=== PATIENT | female | born 1990 | race Caucasian/White ===

== ENCOUNTER → 2021-06-23 | Outpatient (CLI) | payer MEDICAID ==
--- NOTE | 2021-06-23 14:11 | Diagnostic Imaging Report ---
INDICATION: Palpable lump left breast. Patient has had multiple left breast biopsies. COMPARISON: Correlation is made with the prior mammogram from 12/12/2018. TECHNIQUE: 2D and 3D bilateral diagnostic mammography was performed with CAD. FINDINGS: Both breasts are heterogeneously dense, limiting the sensitivity of mammography. There are multiple clips in the left breast from prior surgery. A BB marker was placed at the area of palpable abnormality in the outer left breast. No underlying mass is identified. No malignant-appearing microcalcifications are seen. The axillae are unremarkable. IMPRESSION: No mammographic features suspicious for malignancy are identified. Even so, directed sonographic interrogation of the area of palpable abnormality in the left breast is recommended and will be performed today. ACR BI-RADS Category 0: Incomplete. (Needs additional imaging evaluation). Result letter will be mailed to the patient. Note: At least 10% of breast cancer is not imaged by mammography. Dictated by: Dictated on workstation # [id number]
--- NOTE | 2021-06-23 16:52 | Diagnostic Imaging Report ---
INDICATION: Status post excisional biopsy, left breast. The patient has a new palpable abnormality in the left breast. CORRELATION is made with diagnostic mammogram performed earlier same day. Sonographic interrogation of the area of palpable abnormality was performed. This correlates to the 3:00 location approximately 8 cm from the nipple. There are several small benign-appearing hypoechoic nodules at this location, all measuring 1 cm or less. While these could represent small intraparenchymal lymph nodes these are fairly well-circumscribed and have benign features. This is located deep to the patient's surgical scar and it is conceivable this represents an area of parenchymal scarring. In addition, the upper outer left breast at the 2:00 location was evaluated due to some parenchymal asymmetry on the diagnostic mammogram. There is an area of ovoid heterogeneity at the 2:00 location, 3 cm from the nipple, measuring 2.6 x 0.9 x 3.1 cm. There is no internal vascularity. No posterior acoustic shadowing is seen. This likely accounts for the area of increased density noted mammographically. IMPRESSION: BI-RADS Category 4 Benign appearance to the 3:00 location of the left breast at the area of palpable abnormality. A follow-up of this area with ultrasound in 6 months could be performed to show continued stability. 2. Ovoid mixed echogenicity lesion at the 2:00 location of the left breast, 3 cm from the nipple, likely accounting for an area of increased density noted mammographically. While this has benign features as well, this was not definitely present on prior mammogram and tissue sampling would be recommended. This would be amenable to ultrasound-guided core biopsy. Dictated by: Dictated on workstation # [id number]
== END ==
LOC: RAD 13:45
PROVIDERS: ATTEND Obstetrics & Gynecology
DX: N63.20 Unspecified lump in the left breast, unspecified quadrant (principal)
CPT/HCPCS: 76642; 77066; G0279; 77062

== ENCOUNTER 2021-08-01 05:30 | Outpatient (CLI) | payer MEDICAID ==
[~2021-08-01] VITALS: Ht 167.7 cm; Wt 90.8 kg
[2021-08-01] MEDS ORDERED: VENL150C PO (10:31)
[2021-08-01] MEDS ORDERED: OMEP20CA18 PO (10:31)
[2021-08-01] MEDS ORDERED: QUET25TA PO (10:31)
[2021-08-01] MEDS ORDERED: VENL37.52 PO (10:31)
[2021-08-01] MEDS ORDERED: LAMO100T69 PO (10:31)
[2021-08-01] MEDS ORDERED: NORG1TAB14 PO (10:31)
[2021-08-01] MEDS ORDERED: TRAZ-227 PO (10:31)
[2021-08-01] MEDS ORDERED: CHOL4PAC16 PO (10:31)
== END 2021-08-01 10:47 | disposition home or self-care (01) ==
LOC: PREOP 05:30
PROVIDERS: ATTEND Obstetrics & Gynecology
DX: Z01.818 Encounter for other preprocedural examination (principal)

== ENCOUNTER 2021-08-08 06:39 | Day surgery (SDC) | payer MEDICAID ==
[~2021-08-08] VITALS: Ht 167.7 cm; Wt 90.8 kg
[2021-08-08] VITALS (11 sets, daily range): BP systolic 101–125; BP diastolic 53–78
[~2021-08-08 06:39] MED LIST: CHOL4PAC16 PO; LAMO100T69 PO; NORG1TAB14 PO; OMEP20CA18 PO; QUET25TA PO; TRAZ-227 PO; VENL150C PO; VENL37.52 PO
--- OUTSIDE RECORDS SUMMARY | 2021-08-08 06:42 | XMS REPORT | Clinical Summary ---
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 If you d o not see the information that you expected, contact Release of Information in [facility] Information Management department at [phone] for further assistan ce in locating additional records.[facility] Allergies Not on File Medications Not on file Active Problems Not on file Social History Date Tobacco Use Types Packs/Day Years Used Never Assessed Sex Assigned at Date Recorded Not on file Last Filed Vital Signs Not on file Plan of Treatment Health Maintenance Due Date Last Done Comments HIV SCREENING 2006 DTAP/TDAP VACCINES (1 - 2009 Tdap) HEPATITIS C SCREENING 2009 PHYSICAL (COMPREHENSIVE) 2009 EXAM CERVICAL CANCER SCREENING 2012 INFLUENZA VACCINE 08/22/2021 Results Not on filefrom Last 3 Months Advance Directives Patient Resin Remover Explanation Type Date Recorded Advance Directive/DPOA
[2021-08-08] MEDS ORDERED: LIDOCAINE/EPI 1%-1:100,000 (XYLOCAINE) 20ML ONE (06:57)
[2021-08-08] MEDS ORDERED: ceFAZolin INJECTION 1,000 MG in WATER (STERILE) FOR INJECTION 10 ML IV ONE (07:00)
[2021-08-08] MEDS: LACTATED RINGERS 1,000 ML IV PRN ×2 (07:11→08:25)
[2021-08-08] MEDS ORDERED: MIDAZOLAM 2 MG/2 ML (VERSED) VIAL ONE ×2 (07:15→07:25)
[2021-08-08 07:19] LABS: BASOPHILS % (AUTO) 1 % (0-10); EOSINOPHILS # (AUTO) 0.3 10^3/uL (0.0-0.3); EOSINOPHILS % (AUTO) 5 % (0-10); HEMATOCRIT 36 % (35-52); HEMOGLOBIN 12.1 g/dL (11.5-16.0); LYMPHOCYTES # (AUTO) 1.6 10^3/uL (1.0-4.0); LYMPHOCYTES % (AUTO) 29 % (12-44); MEAN CORPUSCULAR HEMOGLOBIN 31 pg (25-34); MEAN CORPUSCULAR HGB CONC 34 g/dL (32-36); MEAN CORPUSCULAR VOLUME 91 fL (80-99); MEAN PLATELET VOLUME 9.8 fL (9.0-12.2); MONOCYTES # (AUTO) 0.4 10^3/uL (0.0-1.0); MONOCYTES % (AUTO) 7 % (0-12); NEUTROPHILS # (AUTO) 3.1 10^3/uL (1.8-7.8); NEUTROPHILS % (AUTO) 58 % (42-75); PLATELET COUNT 272 10^3/uL (130-400); WHITE BLOOD COUNT 5.4 10^3/uL (4.3-11.0)
[2021-08-08] MEDS ORDERED: LIDOCAINE PF 2% 5 ML (XYLOCAINE) VIAL ONE ×2 (07:25→07:26)
[2021-08-08] MEDS ORDERED: fentaNYL INJ 100 MCG/2 ML AMP ONE ×4 (07:25→11:41)
[2021-08-08] MEDS ORDERED: proPOfol 200 MG/20 ML (DIPRIVAN) VIAL IV ONE (07:25)
[2021-08-08] MEDS ORDERED: ROCURONIUM 10 MG/ML 5 ML SYRINGE IV ONE (07:26)
[2021-08-08] MEDS ORDERED: ONDANSETRON 4 MG/2 ML (SDV) Z0FRAN ONE ×2 (07:26→09:39)
[2021-08-08] MEDS ORDERED: ESTROGENS CONJ INJECTION 25 MG in WATER (STERILE) FOR INJECTION 5 ML IV ONE (07:30)
[2021-08-08] MEDS ORDERED: D5 LR IV SOLUTION 1,000 ML IV SCH (07:30)
[2021-08-08] MEDS ORDERED: oxyCODONE/APAP 5/325MG (PERCOCET 5) TABLET PO PRN (07:30)
[2021-08-08] MEDS ORDERED: KETOROLAC 30 MG/ML VIAL IVP SCH ×2 (07:30→15:00)
[2021-08-08] MEDS ORDERED: ONDANSETRON 4 MG/2 ML (SDV) Z0FRAN IVP PRN ×2 (07:30)
[2021-08-08] MEDS ORDERED: MIDAZOLAM 2 MG/2 ML (VERSED) VIAL IVP ONE (07:30)
--- NOTE | 2021-08-08 07:33 | Progress Note-Pre Operative ---
Pre-Operative Progress Note H&P Reviewed The H&P was reviewed, patient examined and no changes noted. Date Seen by Provider: Aug 08, 2021 Time Seen by Provider: 07:32 Date H&P Reviewed: Aug 08, 2021 Time H&P Reviewed: 07:32 Pre-Operative Diagnosis: Dysmenorrhea/menorrhagia/chronic pelvic pain ELVIN MILLER MD Aug 08, 2021 7:33 am
--- NOTE | 2021-08-08 07:34 | Progress Note-Post Operative ---
Post-Operative Progess Note Surgeon (s)/Director Patient Financial Services (s) Surgeon ELVIN MILLER MD Director Patient Financial Services: Gail Kahn Pre-Operative Diagnosis Dysmenorrhea/menorrhagia/chronic pelvic pain Post-Operative Diagnosis Same with pathology pending Procedure & Operative Findings Date of Procedure 08/08/21 Procedure Performed/Findings Laparoscopic hysterectomy with BSO and appendectomy Anesthesia Type GETA Estimated Blood Loss Estimated blood loss (mL): Minimal Specimens/Packing Specimens Removed Uterus fallopian tubes and ovaries and appendix ELVIN MILLER MD Aug 08, 2021 07:34
[2021-08-08] MEDS ORDERED: DCS100C PO (07:36)
[2021-08-08] MEDS ORDERED: IBUP-1780 PO (07:36)
[2021-08-08] MEDS ORDERED: OXYC1TAB87 PO (07:36)
--- NOTE | 2021-08-08 07:37 | Discharge Inst-Surgical ---
Discharge Inst-Surgical Depart Medication/Instructions New, Converted or Re-Newed RX: Other Consults/Follow Up Patient Instructions: As directed Orders & Referrals Follow Up Appt: Return to clinic on Wednesday, August 11, 2021 at 9:30 AM for staple removal Call to make follow up appt. for patient in 4 weeks. Activity: Rest for 24 hours, than as tolerated. Wound Care: May remove Band-Aid tomorrow. Replace as desired. Keep incisions clean and dry. Wash daily with soap and water. Diet: As tolerated shower or tub bathe as desired. No driving for 24 hours, no alcoholic beverages for 24 hours, and nothing per vagina (no tampons, douching, or intercourse) for 8 weeks. Patient to return to the clinic as soon as possible for: Temperature greater yudy n 101F, Severe Pain, Foul discharge from incision or vagina, Excessive Bleeding (more than a period). Activity Activity as Tolerated: No Diet Discharge Diet: No Restrictions ELVIN MILLER MD Aug 08, 2021 7:37 am
[2021-08-08] MEDS ORDERED: KETOROLAC 30 MG/ML VIAL ONE (08:46)
[2021-08-08] MEDS ORDERED: GLYCOPYRROLATE 0.2 MG/ML (ROBINUL) 2 ML VIAL ONE (08:46)
[2021-08-08] MEDS ORDERED: NEOSTIGMINE 3 MG/3 ML VIAL ONE (08:46)
[2021-08-08] MEDS ORDERED: DOCUSATE SODIUM 100 MG (COLACE) CAP PO SCH (09:00)
[2021-08-08] MEDS: ONDANSETRON 4 MG/2 ML (SDV) Z0FRAN IVP PRN ×2 (09:40→10:21)
[2021-08-08] MEDS ORDERED: morphine INJ 10 MG/ML 1ML (SYR OR VIAL) IVP ONE (09:45)
[2021-08-08] MEDS ORDERED: PROMETHAZINE INJ 25 MG/ML (PHENERGAN) AMP IVP ONE (09:45)
[2021-08-08] MEDS ORDERED: HYDROmorphone 2 MG/ML VIAL (DILAUDID) IV ONE (09:45)
[2021-08-08] MEDS ORDERED: morphine INJ 10 MG/ML 1ML (SYR OR VIAL) ONE (09:46)
[2021-08-08] MEDS ORDERED: D5 LR IV SOLUTION 1,000 ML IV ONE (10:24)
[2021-08-08] MEDS: fentaNYL INJ 100 MCG/2 ML AMP IVP PRN ×2 (10:30→11:47)
[2021-08-08] MEDS ORDERED: oxyCODONE/APAP 5/325MG (PERCOCET 5) TABLET ONE (13:35)
--- NOTE | 2021-08-08 13:59 | OPERATIVE REPORT ---
DATE OF SERVICE: 08/08/2021 PREOPERATIVE DIAGNOSES: Chronic pelvic pain, menorrhagia and dysmenorrhea. POSTOPERATIVE DIAGNOSES: Chronic pelvic pain, menorrhagia and dysmenorrhea with extensive pelvic adhesions and final pathology pending. OPERATIVE PROCEDURE: Total laparoscopic hysterectomy with bilateral salpingo-oophorectomy, extensive adhesiolysis and laparoscopic appendectomy. OPERATIVE DESCRIPTION: With the patient in the supine position under satisfactory general anesthesia, the patient was repositioned in dorsal lithotomy position in the [facility] and prepped and draped in the usual fashion for abdominal and vaginal surgery using the da Lauri equipment. Weighted speculum was placed in posterior fornix of vagina, cervix exposed and grasped anteriorly with single tooth tenaculum. Uterus sounded to 11 cm with uterine sound. The cervix was then serially dilated with Shahzad dilators to accommodate a Caren II manipulator, which was placed in the usual manner using a 6 mm x 8 cm uterine probe and a 30 mm colpotomy ring. Sutures of #1 Vicryl placed at 3 and 9 o'clock position of the cervix to affix the uterus to the manipulator. Moon catheter was placed in the urinary bladder. The tenaculum and speculum were removed. The patient was brought into low dorsal lithotomy position. A 12 mm incision was made 10 cm superior to the umbilicus. Veress needle was placed through that incision into the abdominal cavity and correct placement confirmed with a water drop test. The abdomen was insufflated with 2.4 liters of carbon dioxide and the Veress needle was removed and a 12 mm Optiview laparoscopic port was placed under direct vision. The abdominal wall was transilluminated, 8 mm ports were placed through incisions of those sizes 8 cm lateral to the umbilicus. All 3 incision sites were infiltrated with 1% lidocaine with epinephrine prior to the incision and port placement. The patient was now placed in Trendelenburg allowing the bowel to spill partially up out of the pelvis. There were extensive adhesions of the pelvis. The uterus could barely be seen. The da Lauri column was advanced on the patient and docked and operative instrument placed in right and left lateral ports and I retired to the da Lauri console. At the console using a vessel sealer, initially on the right and a bipolar fenestrated grasper on the left, the pelvis was examined. There were extensive adhesions obscuring access to the left side of the uterus and left adnexa and to the entire cul-de-sac. The right ovary was densely adherent to the right pelvic side wall over that as well. The appendix was adherent to the pelvic brim and densely involved in adhesions to the abdominal sidewall. The vessel sealer was exchanged for a monopolar shear and adhesiolysis was undertaken freeing the omentum and bowel completely from the pelvis. We eventually completely exposing the uterus and the tubes and the ovaries and allowing visualization of the ureters, which could be seen peristalsing retroperitoneally bilaterally. The right ovary was freed some from adhesions to the ovarian fossae enough to allow for the procedure. The appendix was skeletonized on to the spaces. Decision was made to go ahead and remove the appendix concurrent with the procedure. This was done using the vessel sealer. Once it was replaced in place, instead of the monopolar shear. With the appendix skeletonized, it was somewhat vermiform, but tortuous, lobulated and abnormal appearing. Attention was now turned back to the uterus, right tube and ovary were grasped and elevated. The IP ligament was clamped, cauterized and divided. This was continued stepwise across the mesovarium across to the round ligament, across the round ligament, across the broad ligament down the broad ligament to the cardinal ligament and down onto the cardinal ligament. Same process was used on the left, allowing for eventual removal of both tubes and ovaries with the uterus. The anterior lower uterine segment peritoneum was exposed using a monopolar shear now on the right. The bladder peritoneum was divided. The bladder was carefully dissected down off the lower uterine segment. Colpotomy incision was started at 12 o'clock position onto the colpotomy ring. The colpotomy ring was exposed by dissecting circumferentially. When the colpotomy ring was completely exposed, the uterus was free, it was extracted through the vagina with the tubes and ovaries still attached. The vaginal cuff was closed with a single suture V-Loc barbed suture starting from the right angle and continuing all the way across his left angle, taking sure to include the uterine vessel pedicles bilaterally with the angle stitches. The pelvis was examined for hemostasis, which was complete. There were no remaining adhesions. The da Lauri portion of the procedure was completed. The operative instruments were removed. The da Lauri column was undocked and then using the grasper in the left lateral port stapler and the umbilical port and the camera in the right lateral port. The appendix was exposed, grasped and elevated. The base of the appendix was clamped with the Endo-MARIZA and then when that was fired, it severed the appendix from its attachments. The appendix was placed in an Endobag and brought out through the umbilical incision. The stump of the appendix was copiously irrigated and then treated with several drops of Betadine solution. The pelvis was irrigated as well. Sponge and needle counts correct, hemostasis assured, no pathology remaining, the procedure was terminated. The operative instruments were removed as were the ports. The abdomen was evacuated of insufflating gas in the process. The skin incisions were closed with varsha after closing the fascia at the supraumbilical incision with [id number] suture of 2-0 Vicryl. Speculum was replaced in the vagina. The vaginal cuff was exposed and examined, it was completely hemostatic and completely reapproximated. Moon catheter was left to dependent drainage and was draining clear yellow urine and the ureters had been identified and seemed to peristalse and were normal in caliber and function on completion of the laparoscopic portion of procedure. Sponge and needle counts were correct. Blood loss was minimal. The patient was now uneventfully awakened from her general anesthesia and transferred to the recovery room in stable condition. Job ID: [id number] DocumentID: [id number] Dictated Date: 08/08/2021 08:57:09 Mounter Hand Date: 08/08/2021 13:59:13 Dictated By: ELVIN MILLER MD
[2021-08-09] MEDS ORDERED: DOCUSATE SODIUM 100 MG (COLACE) CAP PO SCH (09:00)
[2021-08-09] MEDS ORDERED: IBUPROFEN 800 MG (MOTRIN) TAB PO SCH (09:00)
== END 2021-08-08 18:10 | disposition home or self-care (01) ==
LOC: SDC 06:39 → WS 13:20 → SDC 18:10
PROVIDERS: ATTEND Obstetrics & Gynecology
DX: N72 Inflammatory disease of cervix uteri (principal); N87.9 Dysplasia of cervix uteri, unspecified; N73.6 Female pelvic peritoneal adhesions (postinfective); N83.201 Unspecified ovarian cyst, right side; N83.202 Unspecified ovarian cyst, left side; K38.8 Other specified diseases of appendix; K38.0 Hyperplasia of appendix; F41.9 Anxiety disorder, unspecified; F32.9 Major depressive disorder, single episode, unspecified; F17.290 Nicotine dependence, other tobacco product, uncomplicated; Z98.51 Tubal ligation status; Z79.899 Other long term (current) drug therapy; Z98.890 Other specified postprocedural states
CPT/HCPCS: 36415; 84703; 85025; 87081; 94664